=== PATIENT | male | born 1980 | race Two or more races ===

== ENCOUNTER 2018-10-09 16:29 | Emergency (ER) | payer SELFPAY ==
[~2018-10-09] VITALS: Ht 160 cm; Wt 108.0 kg
[2018-10-09 16:34] VITALS: BP 149/88
[2018-10-09] MEDS ORDERED: HYDROcodone/APAP 5/325 TABLET ONE (18:23)
--- NOTE | 2018-10-09 18:29 | NUR ---
DISCUSSED COMPARTMENT SYNDROME S/S AND TO RETURN TO ED. PT VERBALIZED UNDERSTANDING
[2018-10-09] MEDS ORDERED: HYDROcodone/APAP 5/325 TABLET PO ONE (18:30)
== END 2018-10-09 19:10 | disposition home or self-care (01) ==
LOC: ED 19:05
DX: S82.54XA Nondisplaced fracture of medial malleolus of right tibia, initial encounter for closed fracture (principal); S82.401A Unspecified fracture of shaft of right fibula, initial encounter for closed fracture; V00.131A Fall from skateboard, initial encounter; Y93.89 Activity, other specified; Y92.89 Other specified places as the place of occurrence of the external cause; Y99.8 Other external cause status
CPT/HCPCS: 29505; 99283